=== PATIENT | male | born 1945 | race Caucasian/White ===

== ENCOUNTER 2019-11-23 16:28 | Inpatient (IN) | payer MEDICARE, OTHER ==
[~2019-11-23] VITALS: Ht 167.6 cm; Wt 73.5 kg
--- NOTE | 2019-11-23 17:00 | NUR ---
[facility] From [facility] For "increasing agitation, punched a wall. On room air, breathing evenly and unlabored. Connected to the monitor and pulse ox. kept comfortable, will continue to monitor accordingly. Sitter at bedside for constant monitoring.
[2019-11-23] MEDS ORDERED: diphenhydrAMINE HCL 50 MG/ML VIAL ONE (17:37)
[2019-11-23] MEDS ORDERED: HALOPERIDOL LACTATE INJ 5 MG/ML VIAL ONE (17:37)
[2019-11-23] MEDS ORDERED: LORAZEPAM INJ 2 MG/ML VIAL ONE ×3 (17:38→18:41)
[2019-11-23] MEDS ORDERED: diphenhydrAMINE HCL 50 MG/ML VIAL IM ONE (18:00)
[2019-11-23] MEDS ORDERED: LORAZEPAM INJ 2 MG/ML VIAL IM ONE ×2 (18:00→18:30)
[2019-11-23] MEDS ORDERED: HALOPERIDOL LACTATE INJ 5 MG/ML VIAL IM ONE (18:00)
--- NOTE | 2019-11-23 18:00 | NUR ---
patient aggressive to staff MD ordered restraint.
[2019-11-23 18:12] LABS: APPEARANCE,URINE Clear (CLEAR); BILIRUBIN,URINE SMALL (NEGATIVE); BLOOD, URINE Moderate Ery/uL (NEGATIVE); COLOR,URINE Orange (YELLOW); KETONES,URINE Negative (NEGATIVE); LEUKOCYTE ESTERASE ,URINE Negative (NEGATIVE); NITRITE, URINE Negative (NEGATIVE); PH,URINE 5.5 (5.0-8.0); PROTEIN,URINE 30 mg/dl (NEGATIVE); UGLUCOSE Negative (NEGATIVE)
[2019-11-23 18:24] LABS: BACTERIA,URINE Rare /HPF (None Seen); RBC,URINE 21-50 /HPF (0-2); SQUAMOUS EPITHELIAL CELL,UR Few /HPF (None Seen); WBC,URINE NONE SEEN /HPF (0-3)
--- NOTE | 2019-11-23 18:45 | NUR ---
TRAFFIC OPERATIONS MANAGER AT BEDSIDE FOR BLOOD DRAW
[2019-11-23 18:46] LABS: BASOPHILS % (AUTO) 0.6 % (0.0-2.0); EOSINOPHILS % (AUTO) 1.5 % (0.0-6.0); HEMATOCRIT 48 % (39-51); HEMOGLOBIN 16.4 g/dL (13.5-17.5); LYMPHOCYTES # (AUTO) 2.4 /CMM (0.8-4.8); LYMPHOCYTES % (AUTO) 30.1 % (20.0-44.0); MEAN CORPUSCULAR HGB CONC 34 g/dl (31.0-36.0); MEAN CORPUSCULAR VOLUME 98 fL (80-96); MONOCYTES # (AUTO) 0.5 /CMM (0.1-1.30); MONOCYTES % (AUTO) 6.8 % (2.0-12.0); NEUTROPHILS # (AUTO) 4.9 /CMM (1.8-8.9); PLATELET COUNT (AUTO) 98 /CMM (150-450); RED BLOOD CELL COUNT(AUTO) 4.86 MIL/uL (4.5-6.0)
[2019-11-23 18:58] LABS: CALCIUM, SERUM 8.3 mg/dL (8.5-10.1); CARBON DIOXIDE 22 mmol/L (21-32); CHLORIDE 104 mmol/L (98-107); CREATININE 1.1 mg/dL (0.6-1.3); GLUCOSE 108 mg/dL (74-106); POTASSIUM 4.2 mmol/L (3.5-5.1); SODIUM SERUM 138 mmol/L (136-145); UREA NITROGEN, BLOOD 14 mg/dL (7-18)
[2019-11-23 19:03] LABS: ALANINE AMINOTRANSFERASE 111 U/L (12-78); ALKALINE PHOSPHATASE 112 U/L (46-116); ASPARTATE AMINOTRANSFERASE 149 U/L (15-37); BILIRUBIN,DIRECT 0.7 mg/dL (0.0-0.2); BILIRUBIN,TOTAL 2.1 mg/dL (0.2-1.0); TOTAL PROTEIN, SERUM 7.6 g/dL (6.4-8.2)
[2019-11-23 19:04] LABS: ACETAMINOPHEN < 2 ug/ml (10-30); ALCOHOL, BLOOD < 3 mg/dL (0-0); SALICYLATE < 0.2 mg/dL (2.8-20.0)
--- NOTE | 2019-11-23 19:16 | NUR ---
CALLED PRETTY FOR CRISIS EVALUATION. ETA 1 HOUR.
--- NOTE | 2019-11-23 20:02 | NUR ---
PINKY AT BEDSIDE FOR EVALUATION
[2019-11-23 20:38] LABS: BAND % (MANUAL) 1 % (0.0-5.0); EOSINOPHILS % (MANUAL) 1 % (0-4); LYMPHOCYTES % (MANUAL) 29 % (16-48); MONOCYTES % (MANUAL) 7 % (0-11.0); NEUTROPHILS % (MANUAL) 62 (42-76)
--- NOTE | 2019-11-23 21:15 | NUR ---
REPORT GIVEN TO NESSA NAVARRETE FOR LEVI PT WILL BE TRANSPORTED TO GPS
--- NOTE | 2019-11-23 21:47 | NUR ---
pt transproted to gps
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
[2019-11-23] MEDS ORDERED: MAGNESIUM HYDROXIDE 30 ML UDC PO PRN (22:30)
[2019-11-23] MEDS ORDERED: MAG HYDROX/AL HYDROX/SIMETH 30 ML UDC PO PRN (22:30)
[2019-11-23] MEDS ORDERED: BLOOD SUGAR DIAGNOSTIC 1 EACH STRIP IN ONE (22:30)
[2019-11-23] MEDS ORDERED: ACETAMINOPHEN 325 MG TABLET PO PRN (22:30)
[2019-11-23] MEDS ORDERED: QUET100T PO (23:05)
[2019-11-23] MEDS ORDERED: FLUT1BLS IH (23:05)
[2019-11-23] MEDS ORDERED: FURO-145 PO (23:05)
[2019-11-23] MEDS ORDERED: SERT50TA12 PO (23:05)
[2019-11-23] MEDS ORDERED: famotidine PO (23:05)
[2019-11-23] MEDS ORDERED: TAMS-12 PO (23:05)
[2019-11-23 23:06] VITALS: BP 141/88
[2019-11-24 06:26] LABS: CREATININE 0.9 mg/dL (0.6-1.3); MAGNESIUM 1.7 mg/dL (1.8-2.4); PHOSPHORUS 2.9 mg/dL (2.5-4.9)
[2019-11-24 06:36] LABS: THYROID STIMULATING HORMONE 4.798 uIU/mL (0.358-3.74)
[2019-11-24] MEDS: FAMOTIDINE (20 MG) 20 MG TABLET PO SCH (07:55)
[2019-11-24 08:00] VITALS: BP 123/76
[2019-11-24] MEDS: TAMSULOSIN 0.4 MG CAP.SR.24H PO SCH (08:46)
[2019-11-24] MEDS: FUROSEMIDE 20 MG TABLET PO SCH (08:46)
[2019-11-24] MEDS: FLUTICASONE/VILANTEROL 1 EACH BLST.W.DEV IH SCH (08:46)
[2019-11-24] MEDS ORDERED: MAGNESIUM OXIDE 400 MG TABLET PO ONE (10:00)
--- NOTE | 2019-11-24 11:05 | NUR ---
Family Contact: SW called the point of contact on the pts face sheet, Carlo ([phone]), but the number was disconnected.
--- NOTE | 2019-11-24 11:15 | NUR ---
SNF Contact: SW contacted EFRAÍN ([phone]), staffing and scheduling coordinator from [facility], who stated that the pt cannot return to their facility per their DON.
--- NOTE | 2019-11-24 11:26 | NUR ---
Initial Discharge Plan: Pt resides at [facility] located at [address] [place] [id number]; ([phone]). Per Glass Laminating Operator, EFRAÍN, pt cannot return to the facility. BESSY will work with the MD and the pt regarding discharge planning. SW will form a safe and proper discharge plan.
--- NOTE | 2019-11-24 12:00 | NUR ---
RN NOTE: SKIN NOTED TO BE SLIGHTLY YELLOW IN COLOR. SCLERA WHITE
--- NOTE | 2019-11-24 14:12 | NUR ---
RN NOTE: US AT BEDSIDE FOR US RUQ RT ELEVATED LIVER ENZYMES AND BILIRUBIN.
[2019-11-24] MEDS: HALOPERIDOL 5 MG TABLET PO SCH ×2 (15:05→22:16)
[2019-11-24 16:00] VITALS: BP 139/82
[2019-11-24] MEDS ORDERED: ALBUTEROL SULFATE 8 GM HFA.AER.AD IH PRN (17:30)
--- NOTE | 2019-11-24 18:10 | NUR ---
RN NOTE: ABSESS 4CM x 4 CM ABSESS NOTED TO RIGHT BUTTOCK. PHOTO TAKEN AND PLACED IN CHART. WOUND CONSULT ORDERED
[2019-11-24] MEDS: ALBUTEROL FS 2.5 MG/3 ML VIAL.NEB NEB PRN (20:11)
[2019-11-24 20:52] VITALS: BP 126/78
[2019-11-24] MEDS: TEMAZEPAM 7.5 MG CAPSULE PO PRN (22:16)
[2019-11-24] MEDS: BENZTROPINE MESYLATE (1 MG) 1 MG TABLET PO SCH (22:16)
[2019-11-24] MEDS: LORAZEPAM 0.5 MG TABLET PO PRN (22:17)
[2019-11-25 08:00] VITALS: BP 137/77
[2019-11-25] MEDS: FAMOTIDINE (20 MG) 20 MG TABLET PO SCH (08:37)
[2019-11-25] MEDS: HALOPERIDOL 5 MG TABLET PO SCH ×4 (08:37→21:00)
[2019-11-25] MEDS: FUROSEMIDE 20 MG TABLET PO SCH (08:37)
[2019-11-25] MEDS: TAMSULOSIN 0.4 MG CAP.SR.24H PO SCH (08:37)
[2019-11-25] MEDS: BENZTROPINE MESYLATE (1 MG) 1 MG TABLET PO SCH ×3 (08:37→20:46)
[2019-11-25] MEDS: FLUTICASONE/VILANTEROL 1 EACH BLST.W.DEV IH SCH (08:39)
--- NOTE | 2019-11-25 10:28 | NUR ---
WOUND CARE CONSULT: PT PRESENTS WITH RT LOWER BUTTOCK RAISED PINK AREA, NON FLUCTUANT, WHICH PT STATES HE HAS HAD FOR 4 YEARS. RN TO DISCUSS WITH PMD TODAY. PT IS AMBULATORY WITH ASSISTANCE AND CONTINENT. CURRENT RITU SCORE IS 17. WILL SEE PRN. Addendum: 11/25/19 at 1033 by JESUS CAUSEY WNDNU Amended: Links added.
[2019-11-25 16:00] VITALS: BP 132/70
[2019-11-25] MEDS: LORAZEPAM 0.5 MG TABLET PO PRN (18:31)
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
--- NOTE | 2019-11-25 19:00 | NUR ---
GPS/RN-NOTES PATIENT IN THE HALLWAY UP IN THE WHEELCHAIR,CALM NO ACUTE DISTRESS NOTED. PATIENT ABLE TO WHEELED SELF IN THE UNIT. WILL ENDORSE TO INCOMING NURSE FOR CONTINUITY OF CARE.
[2019-11-25 20:30] VITALS: BP 138/74
--- NOTE | 2019-11-25 21:00 | NUR ---
Patient refused night routine medication. Medication offered three times. Mepilex applied to cushion abscess in the buttocks. Patient in a geriatric chair in the hallway with line of sight observation. Will continue to monitor.
[2019-11-26 08:00] VITALS: BP 143/71
[2019-11-26] MEDS: FUROSEMIDE 20 MG TABLET PO SCH (09:51)
[2019-11-26] MEDS: TAMSULOSIN 0.4 MG CAP.SR.24H PO SCH (09:51)
[2019-11-26] MEDS: BENZTROPINE MESYLATE (1 MG) 1 MG TABLET PO SCH ×2 (09:51→21:00)
[2019-11-26] MEDS: FAMOTIDINE (20 MG) 20 MG TABLET PO SCH (09:51)
[2019-11-26] MEDS: LORAZEPAM 0.5 MG TABLET PO PRN (09:51)
[2019-11-26] MEDS: FLUTICASONE/VILANTEROL 1 EACH BLST.W.DEV IH SCH (09:52)
--- NOTE | 2019-11-26 10:20 | NUR ---
GPS RN NOTE: SKIN TEAR PATIENT WAS SEEN SCRATCHING SELF ON RIGHT ARM AND CAUSING SKIN TEAR. PHOTO TAKEN AND PLACED IN CHART
--- NOTE | 2019-11-26 12:29 | NUR ---
SNF Referral: SW faxed a referral to the following two facilities: [facility] with attn to Elin to the fax number: [phone] [facility] with attn to Kathy to the fax number: [phone]
--- NOTE | 2019-11-26 14:51 | NUR ---
INDIVIDUAL COUNSELING: SW attempted to provide individual counseling to pt. However, pt is only alert and oriented x2 and did not engage in conversation. Pt remains isolative and withdrawn. SW will attempt to engage pt in conversation at a later time.
[2019-11-26 16:00] VITALS: BP 150/83
[2019-11-26 20:33] VITALS: BP 151/87
[2019-11-26] MEDS: HALOPERIDOL 5 MG TABLET PO SCH (21:00)
--- NOTE | 2019-11-26 23:20 | NUR ---
GPS RN NOTES: RECEIVED PT IN ALONDRA CHAIR, AWAKE, ALERT AND ORIENTED X1-2. BLUNT AFFECT, APPEARS DEPRESSED, ANXIOUS, DISORGANIZED, CONFUSED, LABILE, UNCOOPERATIVE. REFUSED 2100 MEDS COGENTIN IMG/1 TAB, HALDOL 5MG/1 TAB. PT WAS BLEEDING ON BILATERAL UPPER EXTREMITIES DUE TO SCRATCHING BUT REFUSED TO BE TOUCHED TO CLEAN AND TAKE PICTURES. NO S/S OF DISTRESS. RESPIRATION EVEN AND UNLABORED WITH EQUAL RISE AND FALL OF THE CHEST, ON ROOM AIR. OFFERED FLUID AND SNACK TOLERATED. SAFETY AND FALL PRECAUTION OBSERVED, CALL LOPES WITHIN REACH. Q15 MINUTES OBSERVATION CONTINUED. WILL CONTINUE TO MONITOR PT FOR MOOD, SAFETY AND BEHAVIOR. Addendum: 11/26/19 at 2327 by HERNANDEZ PECK RN PT ALSO REFUSED ATIVAN 0.5MG 1 TAB, AND RESTORIL 7.5MG 1 CAP FOR SLEEP. WILL CONTINUE TO MONITOR.
[2019-11-27] MEDS: FAMOTIDINE (20 MG) 20 MG TABLET PO SCH (07:30)
[2019-11-27 08:00] VITALS: BP 153/82
[2019-11-27] MEDS: TAMSULOSIN 0.4 MG CAP.SR.24H PO SCH (08:23)
[2019-11-27] MEDS: FUROSEMIDE 20 MG TABLET PO SCH (08:23)
[2019-11-27] MEDS: FLUTICASONE/VILANTEROL 1 EACH BLST.W.DEV IH SCH (08:23)
[2019-11-27] MEDS: BENZTROPINE MESYLATE (1 MG) 1 MG TABLET PO SCH ×4 (08:23→22:12)
[2019-11-27] MEDS: HALOPERIDOL 5 MG TABLET PO SCH ×4 (08:23→22:12)
--- NOTE | 2019-11-27 09:00 | NUR ---
GPOS/RN PT REFUSED TO TAKE MEDICATION OFFERED X3
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
[2019-11-27] MEDS ORDERED: LORAZEPAM INJ 2 MG/ML VIAL IM ONE (12:00)
[2019-11-27] MEDS ORDERED: BENZTROPINE MESYLATE (2MG/2ML) 2 MG/2 ML AMPUL IM ONE (12:00)
[2019-11-27] MEDS ORDERED: HALOPERIDOL LACTATE INJ 5 MG/ML VIAL IM ONE (12:00)
--- NOTE | 2019-11-27 12:29 | NUR ---
SNF Contact: Pt was accepted to [facility] per Neel ([phone]), [facility] [employer] [facility].
[2019-11-27 15:59] VITALS: BP 140/52
--- NOTE | 2019-11-27 17:11 | NUR ---
GPS/RN ECG TAKEN BY RT AND PLACED IN THE CHART. FLIGHT INSPECTOR WAS NOT ABLE TO DO THE BLOOD DRAW-PT IS HARD TO STICK WITH MULTIPLE SKIN SCARRING BOTH ARMS. LAB WILL SENT ANOTHER FLIGHT INSPECTOR.
[2019-11-27 20:00] VITALS: BP 143/66
[2019-11-27 20:13] VITALS: BP 143/66
--- NOTE | 2019-11-27 22:12 | NUR ---
RN NOTES COGENTIN AND HALDOL NOT GIVEN, PATIENT SEDATED.
[2019-11-27 23:00] LABS: BASOPHILS # (AUTO) 0.1 /CMM (0.0-0.2); BASOPHILS % (AUTO) 1.2 % (0.0-2.0); EOSINOPHILS % (AUTO) 3.9 % (0.0-6.0); HEMATOCRIT 43 % (39-51); HEMOGLOBIN 14.5 g/dL (13.5-17.5); LYMPHOCYTES % (AUTO) 37.6 % (20.0-44.0); MEAN CORPUSCULAR HGB CONC 34 g/dl (31.0-36.0); MEAN CORPUSCULAR VOLUME 98 fL (80-96); MONOCYTES # (AUTO) 0.6 /CMM (0.1-1.30); MONOCYTES % (AUTO) 11.2 % (2.0-12.0); NEUTROPHILS # (AUTO) 2.5 /CMM (1.8-8.9); NEUTROPHILS % (AUTO) 46.1 % (43.0-81.0); RED BLOOD CELL COUNT(AUTO) 4.38 MIL/uL (4.5-6.0); WHITE BLOOD COUNT (AUTO) 5.4 K/uL (4.3-11.0)
[2019-11-27 23:01] LABS: PLATELET COUNT (AUTO) 90 /CMM (150-450)
[2019-11-27 23:18] LABS: ALBUMIN 2.5 g/dL (3.4-5.0); BILIRUBIN,TOTAL 1.8 mg/dL (0.2-1.0); CALCIUM, SERUM 8.1 mg/dL (8.5-10.1); CREATININE 0.9 mg/dL (0.6-1.3); POTASSIUM 3.7 mmol/L (3.5-5.1); TOTAL PROTEIN, SERUM 6.7 g/dL (6.4-8.2)
--- NOTE | 2019-11-28 00:17 | NUR ---
RN NOTES LAB DRAW DONE, AMMONIA LEVEL 79, SURFACE LOGGING SYSTEMS LOGGER SUSI NOTIFIED, NEW ORDER OF LACTULOSE TID PO, WILL START AT 0900, PATIENT STILL SEDATED, REPEAT AMMONIA LEVEL 11/29/19
--- NOTE | 2019-11-28 05:51 | NUR ---
RN NOTES PATIENT ASLEEP, AROUSEABLE BY VOICE AND TOUCH, BREATHING UNLABORED, ANSWERS SIMPLE QUESTIONS, ASLEEP MOST OF THE SHIFT.
[2019-11-28 08:00] VITALS: BP 134/95
[2019-11-28] MEDS ORDERED: LACTULOSE 10 G/15 ML UDC (PYXIS) PO PRN (09:00)
[2019-11-28] MEDS: FLUTICASONE/VILANTEROL 1 EACH BLST.W.DEV IH SCH (09:00)
[2019-11-28] MEDS: BENZTROPINE MESYLATE (1 MG) 1 MG TABLET PO SCH ×2 (10:36→20:44)
[2019-11-28] MEDS: HALOPERIDOL 5 MG TABLET PO SCH ×2 (10:36→16:35)
[2019-11-28] MEDS: FUROSEMIDE 20 MG TABLET PO SCH (10:36)
[2019-11-28] MEDS: FAMOTIDINE (20 MG) 20 MG TABLET PO SCH (10:36)
[2019-11-28] MEDS: LACTULOSE 10 G/15 ML UDC (PYXIS) PO SCH ×3 (10:37→20:44)
[2019-11-28] MEDS: TAMSULOSIN 0.4 MG CAP.SR.24H PO SCH (10:44)
[2019-11-28 16:00] VITALS: BP 130/74
[2019-11-28 20:00] VITALS: BP 133/71
[2019-11-29] MEDS: LACTULOSE 10 G/15 ML UDC (PYXIS) PO SCH ×4 (02:01→21:14)
--- NOTE | 2019-11-29 05:36 | NUR ---
GPS RN NOTES: REFUSED LAB DRAWN PT REFUSED LAB DRAWN AFTER SECOND ATTEMPT DUE TO PT BEING A HARD STICK. PT EASILY AGITATED AND CURSING. EXPLAIN RISKS AND BENEFITS. PT STILL REFUSED X3. PT STATED, "I DONT WANT THAT FUCKING THINK. FORCE ME DOWN WHY DON'T YOU. " EXPLAIN TO PT LAB WILL COME BACK AGAIN TODAY TO RETRY AGAIN. WILL ENDORSE TO DAY SHIFT.
[2019-11-29] MEDS: ALBUTEROL FS 2.5 MG/3 ML VIAL.NEB NEB PRN (06:05)
[2019-11-29 08:00] VITALS: BP 142/74
[2019-11-29] MEDS: BENZTROPINE MESYLATE (1 MG) 1 MG TABLET PO SCH ×2 (08:27→21:14)
[2019-11-29] MEDS: FAMOTIDINE (20 MG) 20 MG TABLET PO SCH (08:27)
[2019-11-29] MEDS: HALOPERIDOL 5 MG TABLET PO SCH ×2 (08:27→16:40)
[2019-11-29] MEDS: TAMSULOSIN 0.4 MG CAP.SR.24H PO SCH (08:27)
[2019-11-29] MEDS: FUROSEMIDE 20 MG TABLET PO SCH (08:27)
[2019-11-29] MEDS: Z GUARD REMEDY 2 OZ OINT TP SCH (08:28)
[2019-11-29] MEDS: FLUTICASONE/VILANTEROL 1 EACH BLST.W.DEV IH SCH (08:29)
--- NOTE | 2019-11-29 10:00 | NUR ---
GPS RN NOTE: PT RESTING IN BED,AWAKE REFUSED TO SHOWER REFUSED TO COOPERATE EASILY AGITATED VSS, PT DENIES CURRENT SI/HI. PT NOT COMPLIANT WITH MEDICATION. REFUSED ASSISTANCE WITH ADLS. DISHEVELED, UNCLEAN, BIZARRE AND MALODOROUS. WILL CONTINUE TO MONITOR 15MIN FOR SAFETY AND BEHAVIOR.
[2019-11-29] MEDS: LORAZEPAM 0.5 MG TABLET PO PRN (14:22)
--- NOTE | 2019-11-29 14:23 | NUR ---
GPS RN NOTE: PT GETTING AGITATED RESTLESS, ATIVAN 0.5 MG PO PRN GIVEN
[2019-11-29 16:00] VITALS: BP 145/75
--- NOTE | 2019-11-29 16:39 | NUR ---
GPS RN NOTE: PT NON COMPLIANT WITH ADL'S,NON COOPERATIVE,REFUSED TO DO SKIN ASSESSMENT EASILY AGITATED.
[2019-11-29 20:30] VITALS: BP 163/86
[2019-11-29 21:12] VITALS: BP 140/75
[2019-11-30] MEDS: TEMAZEPAM 7.5 MG CAPSULE PO PRN ×2 (00:14→21:01)
--- NOTE | 2019-11-30 00:16 | NUR ---
GPS RN NOTES: INSOMNIA PT UNABLE TO SLEEP. PT TRYING TO GET OF AND BANGING ALONDRA CHAIR. PT USING PROFANITY LANGUAGE. OFFERED RESTORIL PRN ORDERED. PT AGREED AND TOLERATED MEDICATION WELL. CONTINUE TO MONITOR.
[2019-11-30] MEDS: LACTULOSE 10 G/15 ML UDC (PYXIS) PO SCH ×5 (02:00→20:49)
[2019-11-30 08:00] VITALS: BP 128/83
[2019-11-30] MEDS: FUROSEMIDE 20 MG TABLET PO SCH (08:52)
[2019-11-30] MEDS: BENZTROPINE MESYLATE (1 MG) 1 MG TABLET PO SCH ×2 (08:52→20:49)
[2019-11-30] MEDS: HALOPERIDOL 5 MG TABLET PO SCH ×3 (08:52→16:17)
[2019-11-30] MEDS: FAMOTIDINE (20 MG) 20 MG TABLET PO SCH (08:52)
[2019-11-30] MEDS: TAMSULOSIN 0.4 MG CAP.SR.24H PO SCH (08:52)
[2019-11-30] MEDS: FLUTICASONE/VILANTEROL 1 EACH BLST.W.DEV IH SCH (08:54)
[2019-11-30] MEDS: Z GUARD REMEDY 2 OZ OINT TP SCH (08:54)
--- NOTE | 2019-11-30 14:09 | NUR ---
gps rn note: med refusal patient refused lactulose despite education and offering multiple times. will continue to monitor
[2019-11-30 15:43] VITALS: BP 151/88
[2019-11-30 16:00] VITALS: BP 151/88
[2019-11-30 20:41] VITALS: BP 146/92
--- NOTE | 2019-11-30 21:04 | NUR ---
GPS RN NOTES: INSOMNIA PT UNABLE TO SLEEP. PT BANGING ALONDRA CHAIR. PT USING PROFANITY LANGUAGE. OFFERED RESTORIL PRN ORDERED. PT AGREED AND TOLERATED MEDICATION WELL. CONTINUE TO MONITOR.
[2019-12-01] MEDS: LACTULOSE 10 G/15 ML UDC (PYXIS) PO SCH ×3 (02:00→15:18)
[2019-12-01 07:53] LABS: BASOPHILS # (AUTO) 0.1 /CMM (0.0-0.2); BASOPHILS % (AUTO) 2.2 % (0.0-2.0); EOSINOPHILS % (AUTO) 4.9 % (0.0-6.0); HEMATOCRIT 44 % (39-51); HEMOGLOBIN 14.8 g/dL (13.5-17.5); LYMPHOCYTES # (AUTO) 1.4 /CMM (0.8-4.8); LYMPHOCYTES % (AUTO) 34.3 % (20.0-44.0); MEAN CORPUSCULAR HGB CONC 34 g/dl (31.0-36.0); MEAN CORPUSCULAR VOLUME 97 fL (80-96); MONOCYTES # (AUTO) 0.5 /CMM (0.1-1.30); MONOCYTES % (AUTO) 11.5 % (2.0-12.0); NEUTROPHILS # (AUTO) 1.9 /CMM (1.8-8.9); NEUTROPHILS % (AUTO) 47.1 % (43.0-81.0); PLATELET COUNT (AUTO) 85 /CMM (150-450); WHITE BLOOD COUNT (AUTO) 4.1 K/uL (4.3-11.0)
[2019-12-01 08:00] VITALS: BP 138/79
[2019-12-01] MEDS: HALOPERIDOL 5 MG TABLET PO SCH ×3 (08:04→16:25)
[2019-12-01] MEDS: TAMSULOSIN 0.4 MG CAP.SR.24H PO SCH (08:04)
[2019-12-01] MEDS: FAMOTIDINE (20 MG) 20 MG TABLET PO SCH (08:04)
[2019-12-01] MEDS: FUROSEMIDE 20 MG TABLET PO SCH (08:04)
[2019-12-01] MEDS: BENZTROPINE MESYLATE (1 MG) 1 MG TABLET PO SCH (08:04)
[2019-12-01 08:13] LABS: ALBUMIN 2.5 g/dL (3.4-5.0); BILIRUBIN,TOTAL 1.7 mg/dL (0.2-1.0); CALCIUM, SERUM 7.9 mg/dL (8.5-10.1); CREATININE 0.7 mg/dL (0.6-1.3); MAGNESIUM 1.8 mg/dL (1.8-2.4); POTASSIUM 3.9 mmol/L (3.5-5.1); TOTAL PROTEIN, SERUM 6.6 g/dL (6.4-8.2)
[2019-12-01] MEDS: FLUTICASONE/VILANTEROL 1 EACH BLST.W.DEV IH SCH (08:18)
[2019-12-01] MEDS: Z GUARD REMEDY 2 OZ OINT TP SCH (08:18)
--- NOTE | 2019-12-01 09:00 | NUR ---
RN NOTE- PT CONFUSED, DISORGANIZED, WORD SALAD AT TIMES, PO INTAKE GOOD, ENCOURAGING FLUIDS, MED COMPLIANT NO BEHAVIORAL ISSUES THIS MORNING
--- NOTE | 2019-12-01 12:30 | NUR ---
SNF Contact: SW faxed an updated clinical, vitals and a COVID screening tool with attn to Elin at [facility] to the fax number: [phone] as the pt is discharging today.
--- NOTE | 2019-12-01 16:13 | NUR ---
Discharge Note: Pt was discharged to [facility] ([facility]) located at [address] [place] [address]; ([phone]). Pt was transported via [facility] at 4PM. There was no one involved to inform about the discharge. Upon discharge, the pt appeared to be in euthymic mood and presented with a calm affect. Pt appeared to be alert and oriented x4 (time, place, self and situation). Pt denied both suicidal and homicidal ideation as well as auditory and visual hallucinations. Pt appears to be ambulatory with a steady gait. Pt appears to be groomed and appropriately dressed. Pt will continue to be under the care of psychiatrist, Dr. Brisen[place], [place] [address] [place] [address]; and jewelry bench worker, Dr. Adiel Mccall, located at [address] [place], [address]; .
--- NOTE | 2019-12-01 16:30 | NUR ---
RN DC NOTE- PT DC AT THIS TIME TO [facility] IN [place]. PT DC PLANNING AND ORDERS CALLED TO RODRIGUEZ AT FACILITY AT 1305. DC INSTRUCTIONS REVIEWED W AMBULANCE EMPLOYEES WELL. VS 138/79, HR- 65 RR-16, T-98.7 AND SATURATION 94%RA. PT ALERT CONFUSED ORIENTED TO SELF. NO VALUABLES PRESENT O RETURN TO PT. DENIES WANTING TO HURT SELF OR OTHERS BUT REMAINS CONFUSED. ID WRISTBAND REMOVED. ESCORTED OFF UNIT BY AMBULANCE STAFF.
== END 2019-12-01 16:30 | DRG 885 ==
LOC: ER 16:30 → GPS 21:11
PROVIDERS: ADMIT Psychiatry & Neurology Psychosomatic Medicine; ATTEND Nurse Practitioner Acute Care
DX: F25.0 Schizoaffective disorder, bipolar type (principal); F01.50 Vascular dementia, unspecified severity, without behavioral disturbance, psychotic disturbance, mood disturbance, and anxiety; F23 Brief psychotic disorder; E44.1 Mild protein-calorie malnutrition; I10 Essential (primary) hypertension; J44.9 Chronic obstructive pulmonary disease, unspecified; K21.9 Gastro-esophageal reflux disease without esophagitis; N40.0 Benign prostatic hyperplasia without lower urinary tract symptoms; R27.9 Unspecified lack of coordination; R74.0 Nonspecific elevation of levels of transaminase and lactic acid dehydrogenase [LDH]; E80.6 Other disorders of bilirubin metabolism; Z68.26 Body mass index [BMI] 26.0-26.9, adult; K76.0 Fatty (change of) liver, not elsewhere classified; Z91.14 Patient's other noncompliance with medication regimen; F19.90 Other psychoactive substance use, unspecified, uncomplicated; E88.09 Other disorders of plasma-protein metabolism, not elsewhere classified; R73.9 Hyperglycemia, unspecified
CPT/HCPCS: 36415; 76705-TC; 80048-TC; 80053-TC; 80061-TC; 80076-TC; 80305; 81000-TC; 82140-TC; 82565-TC; 82962-TC; 83735-TC; 84100-TC; 84439-TC; 84443-TC; 85025-TC; 87081-TC; 97116-TC; 97530-TC; G0480; J0515; J1200; J1630; J2060